=== PATIENT | male | born 1980 ===

== ENCOUNTER 2016-12-06 00:45 | Emergency (ER) | payer BC ==
[2016-12-06 01:06] VITALS: BP 125/68; RESP 18; TEMP 97.9; O2SAT 99
[2016-12-06] MEDS ORDERED: Sodium Chloride 0.9% 1,000 ML IV SCH (01:45)
--- NOTE | 2016-12-06 01:47 | ED PDOC ---
HPI: Abdomen Time Seen by Provider: 12/06/16 01:09 Chief Complaint (Nursing): Abdominal Pain Chief Complaint (Provider): Abdominal Pain History Per: Patient History/Exam Limitations: no limitations Onset/Duration Of Symptoms: Days (1) Current Symptoms Are (Timing): Still Present Location Of Pain/Discomfort: RUQ Additional Complaint(s): 36 y/o M with unremarkable PMH presents to ED with 6 hour history of RUQ abdominal pain. Patient reports pain was gradual in onset and has been intermittently varying between 2/10 and 9/10 intensity. He describes pain as "squeezing" and is aggravated by movement. Approximately 2 hours prior to pain onset, patient reports eating BBQ food and potato chips. He notes associated nausea and 5-6 episodes of nonbloody, nonbilious emesis. He denies fevers, chills, chest pain, sob, dysuria, urinary urgency or diarrhea. Patient has experienced similar pain twice prior but not as long or intense. Past Medical History Vital Signs: Last Vital Signs Temp 97.9 F 12/06/16 01:03 Pulse 52 L 12/06/16 01:03 Resp 18 12/06/16 01:03 BP 125/68 12/06/16 01:03 Pulse Ox 99 12/06/16 01:54 - Surgical History Surgical History: Appendectomy - Family History Family History: States: Unknown Family Hx - Allergies Allergies/Adverse Reactions: Allergies Allergy/AdvReac Type Severity Reaction Status Date / Time No Known Allergies Allergy Verified 12/06/16 01:06 Review of Systems Constitutional: Negative for: Fever, Chills Cardiovascular: Negative for: Chest Pain, Palpitations, Edema Respiratory: Negative for: Cough, Shortness of Breath, Wheezing Gastrointestinal: Positive for: Nausea, Vomiting, Abdominal Pain. Negative for : Diarrhea, Hematemesis Genitourinary Male: Negative for: Dysuria, Frequency, Hematuria Skin: Negative for: Rash Physical Exam - Reviewed Vital Signs Reviewed: Yes - Physical Exam Appears: Positive for: Uncomfortable Head Exam: Positive for: ATRAUMATIC, NORMAL INSPECTION, NORMOCEPHALIC Skin: Positive for: Normal Color, Warm, Dry Eye Exam: Positive for: EOMI, PERRL. Negative for: Scleral icterus Cardiovascular/Chest: Positive for: Regular Rate, Rhythm. Negative for: Edema, Murmur Respiratory: Positive for: Normal Breath Sounds. Negative for: Rales, Rhonchi, Wheezing Gastrointestinal/Abdominal: Positive for: Bowel Sounds (Normal), Soft, Tenderness (RUQ tenderness. [place] sign positive. ). Negative for: Distended, Guarding, Rebound Extremity: Positive for: Capillary Refill (<3s). Negative for: Pedal Edema Neurologic/Psych: Positive for: Alert, Oriented (x3) - Laboratory Results Result Diagrams: 12/06/16 02:08 12/06/16 01:47 - ECG O2 Sat by Pulse Oximetry: 99 - Progress ED Course And Treament: RUQ Ultrasound, CBC, CMP, Amylase, Lipase ordered Zofran, Toradol 06:00 RUQ U/S reveals no cholelithiasis and a normal CBD diameter Elevated AST/ALT noted. Amylase, lipase normal Pain has resolved. Likely secondary to biliary colic Disposition - Clinical Impression Clinical Impression: Biliary colic - Patient ED Disposition Is Patient to be Admitted: No Counseled Patient/Family Regarding: Studies Performed, Need For Followup - Disposition Disposition: Routine/Home Disposition Time: 06:35 Condition: IMPROVED Instructions: Biliary Colic (ED)
[2016-12-06 02:12] LABS: BASO # 0.1 K/uL (0.0-0.2); BASO % 0.5 % (0.0-2.0); EOS # 0.1 K/uL (0.0-0.7); EOS % 0.7 % (0.0-4.0); HEMATOCRIT 44.9 % (35.0-51.0); LYMPH # 1.1 K/uL (1.0-4.3); LYMPH % 8.4 % (20.0-40.0); MEAN CELL VOLUME 87.1 fl (80.0-94.0); MEAN CORPUSCULAR HGB CONC 33.3 g/dL (33.0-37.0); MEAN PLATELET VOLUME 7.6 fl (7.2-11.7); MONO # 0.9 K/uL (0.0-0.8); MONO % 6.8 % (0.0-10.0); NEUT # 11.1 K/uL (1.8-7.0); NEUT % 83.6 % (50.0-75.0); PLATELET COUNT 213 K/uL (130-400); RED CELL DISTRIBUTION WIDTH 13.7 % (11.5-14.5); WHITE BLOOD COUNT 13.3 K/uL (4.8-10.8)
[2016-12-06 02:22] LABS: AMYLASE 82 U/L (30-110); CARBON DIOXIDE 29 mmol/L (22-30); GFR AFRICAN-AMERICAN > 60
[2016-12-06 02:23] LABS: ALB/GLOB RATIO 1.5 (1.0-2.1); ALKALINE PHOSPHATASE 81 U/L (38-126); ALT/SGPT 177 U/L (21-72); AST/SGOT 264 U/L (17-59); BLOOD UREA NITROGEN 16 mg/dl (9-20); GLUCOSE,RANDOM 133 mg/dL (75-110); LIPASE 46 U/L (23-300); TOTAL PROTEIN 7.8 G/DL (6.3-8.2)
[2016-12-06 02:24] LABS: CHLORIDE 101 mmol/L (98-107); POTASSIUM 4.4 MMOL/L (3.6-5.0); SODIUM 139 mmol/l (132-148)
[2016-12-06 02:51] LABS: BILIRUBIN,TOTAL 2.1 mg/dl (0.2-1.3)
[2016-12-06 04:39] LABS: NEUTROPHIL 82 % (42-75); REACTIVE LYMPHOCYTES 3 % (0-0); TOTAL CELLS COUNTED 100
[2016-12-06 06:51] VITALS: PULSE 59
--- NOTE | 2016-12-06 08:35 | US ---
HISTORY: RUQ pain COMPARISON: None. TECHNIQUE: Sonographic evaluation of the right upper quadrant of the abdomen. FINDINGS: LIVER: Measures 12.1 cm in length. Patent portal vein. Portal venous flow: Hepatopetal. Unremarkeable echogenicity of the liver parenchyma. No mass. No intrahepatic bile duct dilatation. GALLBLADDER: Unremarkable. No gallstones. COMMON BILE DUCT: Measures 3.4 mm. No stones. No dilatation. PANCREAS: Unremarkable as visualized. No mass. No ductal dilatation. RIGHT KIDNEY: Measures 5.2 x 4.3 x 9 cm in length. Normal echogenicity. No calculus, mass, or hydronephrosis. AORTA: No aneurysmal dilatation. IVC: Unremarkable. OTHER FINDINGS: None . IMPRESSION: No acute findings related to/accounting for the clinical presentation. Concordant results (preliminary interpretation) provided by [facility]. Procedure Completed: 04:42. Preliminary ([facility]) Report: Dictated and Authenticated: 05:08. Final Interpretation: [id number]. December 06, 2016.
== END 2016-12-06 06:51 | disposition home or self-care (01) ==
LOC: H.ER 00:45
DX: K80.50 Calculus of bile duct without cholangitis or cholecystitis without obstruction (principal); R11.0 Nausea; R10.11 Right upper quadrant pain
CPT/HCPCS: 76705; 80053; 82150; 83690; 85025; 96374; 96375; 99282; J1885; J2405; J7040